=== PATIENT | female | born 1990 | race Caucasian/White ===

== ENCOUNTER 2017-01-08 07:25 | Day surgery (SDC) | payer OTHER ==
[~2017-01-08] VITALS: Ht 165.1 cm; Wt 102.1 kg
[~2017-01-08 07:25] MED LIST: PREN1TAB25 PO; SERT50TA9 PO
[2017-01-08] MEDS ORDERED: Iohexol 240 mg/mL 10 mL Inj ONE (07:26)
[2017-01-08] MEDS ORDERED: MethylprednisoLONE Depot 80 mg/mL Inj ONE (07:26)
[2017-01-08] MEDS ORDERED: Lidocaine PF 2% 10 mL Inj ONE (07:26)
[2017-01-08 07:54] VITALS: BP 120/78; PULSE 82; RESP 14; O2SAT 98
--- NOTE | 2017-01-08 16:18 | PCM.PROC ---
Procedure Note Date of Service: Jan 08, 2017 Pre Procedure Diagnosis: PROCEDURE: LEFT L5 transforaminal epidural steroid injection PRE-PROCEDURE DIAGNOSIS: Lumbar radiculopathy POST-PROCEDURE DIAGNOSIS: same INDICATION: 26-year-old female referred for LEFT L5 transforaminal epidural steroid injection for lumbar radiculopathy PERFORMED BY: Addy Haas MD DESCRIPTION OF PROCEDURE: Patient was met in the holding area. Consent was signed, site was confirmed and all questions were answered. was taken to the procedure suite and placed prone on the procedure table. The image intensifier was manipulated to minimize double shadows of the vertebral endplates above the neural foramen to be addressed. The image intensifier was rotated 30 ipsilaterally for Jason dog appearance. A 25- gauge 5-inch Quincke needle was advanced towards the target area using tunnel view. The image intensifier was then changed to the lateral view and the needle was advanced towards the "safe triangle". Proper positioning was confirmed in the AP view so the tip of the needle ended at the most inferolateral aspect of the superior pedicle. Proper positioning was confirmed with injection of radiopaque contrast dye which showed delineation of the nerve root as well as epidural spread. The contrast was then injected under live fluoroscopy to rule out inadvertent vascular uptake. 1 cc of 2% Lidocaine was injected slowly. After 1 minute the patient was found to be able to move the legs appropriatelywith no signs or symptoms of vascular uptake of the lidocaine 10 mg dexamethasone was injected followed by another 1/2 cc of 2% Lidocaine ANESTHESIA: Local EBL: None. No Blood Products Used COMPLICATIONS: None SPECIMENS: None POST-PROCEDURE DISPOSITION: Patient was returned to the holding area in stable condition. They were discharged home when all discharge criteria were met. Evaluation/Physical Exam before discharge revealed: Preprocedure pain 6/10, postprocedure pain 2/10 DISCHARGE MEDICATIONS: (none, unless otherwise noted) FOLLOW UP: Followup with Waldemar Mays 2 weeks Addy Haas MD * Pain Management * Anesthesiology [facility] [place], [place] .ED: Y: Patient given care and follow up instructions CC: Addy Haas MD Jan 08, 2017 16:18
== END 2017-01-08 23:59 | disposition home or self-care (01) ==
LOC: END 07:25
PROVIDERS: ATTEND Anesthesiology Pain Medicine
DX: M54.16 Radiculopathy, lumbar region (principal)
CPT/HCPCS: 64483; J1040